=== PATIENT | male | born 1975 | race Caucasian/White ===

== ENCOUNTER 2018-02-10 04:56 | Emergency (ER) | payer MEDICAID ==
[~2018-02-10] VITALS: Ht 182.9 cm; Wt 83.8 kg
[~2018-02-10 04:56] MED LIST: LAMO25TA62 PO
[2018-02-10 05:12] VITALS: BP 127/72
[2018-02-10] MEDS ORDERED: LORA-835 PO (05:28)
[2018-02-10] MEDS ORDERED: GUAI473S11 PO (05:28)
[2018-02-10] MEDS ORDERED: AZIT250T PO (05:28)
== END 2018-02-10 05:41 | disposition home or self-care (01) ==
LOC: ER 04:56
DX: J30.9 Allergic rhinitis, unspecified (principal); J32.9 Chronic sinusitis, unspecified; F17.200 Nicotine dependence, unspecified, uncomplicated; F15.10 Other stimulant abuse, uncomplicated; F11.10 Opioid abuse, uncomplicated; F14.10 Cocaine abuse, uncomplicated; Z88.0 Allergy status to penicillin
CPT/HCPCS: 99283

== ENCOUNTER 2018-02-17 17:40 | Emergency (ER) | payer MEDICAID ==
[~2018-02-17] VITALS: Ht 180.3 cm; Wt 74.9 kg
[~2018-02-17 17:40] MED LIST changes: +AZIT250T PO; +GUAI473S11 PO; +LORA-835 PO
[2018-02-17 18:03] VITALS: BP 117/74
[2018-02-17 20:14] LABS: BASOPHILS % (AUTO) 0.3 % (0-1); EOSINOPHILS # (AUTO) 0.1 X10'3 (0-0.9); HEMATOCRIT 47.6 % (42.0-52.0); HEMOGLOBIN 16.4 g/dl (14.0-17.9); LYMPHOCYTES # (AUTO) 1.1 X10'3 (1.1-4.8); LYMPHOCYTES % (AUTO) 14.7 % (21-51); MEAN CORPUSCULAR HEMOGLOBIN 30.9 PG (27.0-31.0); MEAN CORPUSCULAR HGB CONC 34.4 % (33.0-36.5); MEAN CORPUSCULAR VOLUME 89.8 FL (78-98); MEAN PLATELET VOLUME 7.1 FL (7.4-10.4); MONOCYTES # (AUTO) 0.5 X10'3 (0-0.9); MONOCYTES % (AUTO) 6.9 % (2-12); NEUTROPHILS # (AUTO) 5.5 X10'3 (1.8-7.7); NEUTROPHILS % (AUTO) 77.1 % (42-75); PLATELET COUNT 311 X10'3 (140-440); RED CELL DISTRIBUTION WIDTH 13.2 % (11.5-14.5); WHITE BLOOD COUNT 7.2 X10'3 (4.5-11.0)
[2018-02-17] MEDS ORDERED: ondansetron 4mg rapidly disintigrating tab PO ONE (20:15)
[2018-02-17 20:25] LABS: PARTIAL THROMBOPLASTIN TIME 27 SECONDS (22-32); PROTHROMBIN TIME 10.8 SECONDS (9.0-12.0)
[2018-02-17 20:33] LABS: ALANINE AMINOTRANSFERASE 45 U/L (12-78); ALBUMIN 3.7 G/DL (3.4-5.0); ALBUMIN/GLOBULIN RATIO 0.9 (1.1-1.5); ALKALINE PHOSPHATASE 48 IU/L (46-116); ANION GAP 9 (8-16); ASPARTATE AMINO TRANSFERASE 39 U/L (10-37); BILIRUBIN,TOTAL 0.6 MG/DL (0.1-1.0); BLOOD UREA NITROGEN 17 MG/DL (7-18); BUN/CREATININE RATIO 15.7 (5.4-32.0); CALCIUM 8.7 MG/DL (8.5-10.1); CHLORIDE 101 MMOL/L (99-107); CREATININE 1.08 MG/DL (0.60-1.10); GLUCOSE 99 MG/DL (70-104); LIPASE 83 U/L (73-393); POTASSIUM 3.7 MMOL/L (3.5-5.1); SODIUM 139 MMOL/L (135-145); TOTAL CARBON DIOXIDE 28.7 MMOL/L (24-32); TOTAL PROTEIN 7.6 G/DL (6.4-8.2); eGFR 75 ML/MIN
[2018-02-17 20:51] LABS: CLARITY,URINE Clear (Clear); COLOR,URINE Yellow (Yellow); GLUCOSE, URINE Negative (Neg); KETONES,URINE Negative (Neg); LEUKOCYTE ESTERASE ,URINE Negative (Neg); NITRITES, URINE Negative (Neg); OCCULT BLOOD,URINE Trace (Neg); PH,URINE 5.5 (4.8-8.0); PROTEIN,URINE Negative (Neg)
[2018-02-17 20:53] LABS: UA COLLECTION TYPE CLN CATCH MIDSTREAM
[2018-02-17 21:04] LABS: BACTERIA,URINE NONE SEEN /HPF (Neg); MUCUS STRANDS NONE SEEN /LPF (Neg); RBC,URINE 0-2 /HPF (0-2); SQUAMOUS EPITHELIAL CELL,UR FEW /LPF (FEW); WBC,URINE NONE SEEN /HPF (0-4)
== END 2018-02-17 22:03 | disposition home or self-care (01) ==
LOC: ER 17:40
DX: R10.32 Left lower quadrant pain (principal); R19.7 Diarrhea, unspecified; R42 Dizziness and giddiness; R05 Cough; R50.9 Fever, unspecified; R53.1 Weakness; F17.200 Nicotine dependence, unspecified, uncomplicated; F15.10 Other stimulant abuse, uncomplicated; F14.10 Cocaine abuse, uncomplicated; F11.10 Opioid abuse, uncomplicated; Z88.0 Allergy status to penicillin; Z79.899 Other long term (current) drug therapy
CPT/HCPCS: 36415; 74176; 80053; 81001; 83690; 85025; 85610; 85730; 99285

== ENCOUNTER 2018-03-08 16:08 | Emergency (ER) | payer MEDICAID ==
[~2018-03-08] VITALS: Ht 182.9 cm; Wt 81.6 kg
[2018-03-08 16:10] VITALS: BP 122/88
[2018-03-08] MEDS ORDERED: LIDO20SO16 PO (16:46)
== END 2018-03-08 16:58 | disposition home or self-care (01) ==
LOC: ER 16:09
DX: J02.8 Acute pharyngitis due to other specified organisms (principal); F15.10 Other stimulant abuse, uncomplicated; F14.10 Cocaine abuse, uncomplicated; F11.10 Opioid abuse, uncomplicated; Z88.0 Allergy status to penicillin; Z79.899 Other long term (current) drug therapy
CPT/HCPCS: 87081; 87880; 99284

== ENCOUNTER 2018-12-20 02:24 | Emergency (ER) | payer MEDICAID ==
[~2018-12-20] VITALS: Ht 180.3 cm; Wt 59.9 kg
[~2018-12-20 02:24] MED LIST changes: -GUAI473S11 PO; +LIDO20SO16 PO
[2018-12-20 02:29] VITALS: BP 129/76
--- NOTE | 2018-12-20 02:36 | NUR ---
PT HAS NO C/O ANYTHING OTHER THAN BEING OUTSIDE AND USING METH AND WANTS ABX R/T STUFF IN METH. HE GOT INTO HIS ROOM, HE TOOK OFF HIS JACKET. HE IS SITTING ON THE BED AWAITING ME. HE APPEARS CLEAN. HE HAS A WINTER JACKET, BEANIE HAT ON AND JEANS/SHOES AND A SUITCASE AND A BACK PACK. HE IS CLEANING THE INSIDE OF HIS BACKPACK RIGHT NOW. HE SEEMS VERY TIDY.
== END 2018-12-20 03:16 | disposition home or self-care (01) ==
LOC: ER 02:25
DX: F15.10 Other stimulant abuse, uncomplicated (principal); E05.00 Thyrotoxicosis with diffuse goiter without thyrotoxic crisis or storm; Z59.0 Homelessness; Z88.0 Allergy status to penicillin
CPT/HCPCS: 99281

== ENCOUNTER 2019-01-13 09:58 | Emergency (ER) | payer MEDICAID ==
[~2019-01-13] VITALS: Ht 180.3 cm; Wt 75.7 kg
[2019-01-13 10:13] VITALS: BP 131/75
--- NOTE | 2019-01-13 11:33 | NUR ---
See Provider notes for physical assessment.
[2019-01-14] MEDS ORDERED: BUPR-94 PO (00:49)
[2019-01-14] MEDS ORDERED: TEST200V10 IM (00:49)
== END 2019-01-13 11:48 | disposition home or self-care (01) ==
LOC: ER 10:00
DX: M79.642 Pain in left hand (principal); M79.641 Pain in right hand; M79.672 Pain in left foot; M79.671 Pain in right foot; F15.90 Other stimulant use, unspecified, uncomplicated; Z59.0 Homelessness; Z88.1 Allergy status to other antibiotic agents; Z79.899 Other long term (current) drug therapy
CPT/HCPCS: 99284

== ENCOUNTER 2019-01-13 13:15 | Emergency (ER) | payer MEDICAID ==
[~2019-01-13] VITALS: Ht 180.3 cm; Wt 77.0 kg
--- NOTE | 2019-01-13 14:00 | NUR ---
NO BEDS AVAILABLE, PT HAS CONTRACTED FOR SAFETY AND WILL STAY IN ER FOR EVALUATION, PT IS AWARE HE IS ON 5150, PT IN HALLWAY 16, CALM AND COOPERATIVE, RESP EVEN AND UNLABORED,
--- NOTE | 2019-01-13 14:45 | NUR ---
pt remains calm and cooperative, dressed in green scrubs and has green blanket, gave pt crackers an water, nubia well, no n/v
--- NOTE | 2019-01-13 15:00 | NUR ---
pt is eating sandwich and water,
--- NOTE | 2019-01-13 15:05 | NUR ---
unable to do telepsych as pt is in hallway
[2019-01-13 15:09] LABS: URINE AMPHETAMINE SCREEN POSITIVE (Neg); URINE BARBITUATE SCREEN NEGATIVE (Neg); URINE BENZODIAZEPINES SCREEN NEGATIVE (Neg); URINE CANNABINOID SCREEN NEGATIVE (Neg); URINE COCAINE SCREEN NEGATIVE (Neg); URINE METHADONE SCREEN NEGATIVE (Neg); URINE OPIATE SCREEN NEGATIVE (Neg); URINE PHENCYCLIDINE SCREEN NEGATIVE (Neg)
[2019-01-13 15:15] LABS: BASOPHILS % (AUTO) 0.6 % (0-1); EOSINOPHILS # (AUTO) 0.2 X10'3 (0-0.9); EOSINOPHILS % (AUTO) 3.1 % (0-6); HEMOGLOBIN 14.1 g/dl (14.0-17.9); LYMPHOCYTES # (AUTO) 1.5 X10'3 (1.1-4.8); LYMPHOCYTES % (AUTO) 22.4 % (21-51); MEAN CORPUSCULAR HEMOGLOBIN 30.5 PG (27.0-31.0); MEAN CORPUSCULAR HGB CONC 34.5 g/dL (33.0-36.5); MEAN CORPUSCULAR VOLUME 88.5 FL (78-98); MEAN PLATELET VOLUME 6.3 FL (7.4-10.4); MONOCYTES # (AUTO) 0.5 X10'3 (0-0.9); MONOCYTES % (AUTO) 6.8 % (2-12); NEUTROPHILS # (AUTO) 4.5 X10'3 (1.8-7.7); NEUTROPHILS % (AUTO) 67.1 % (42-75); PLATELET COUNT 456 X10'3 (140-440); RED BLOOD COUNT 4.63 X10'6 (4.70-6.10); RED CELL DISTRIBUTION WIDTH 13.5 % (11.5-14.5); WHITE BLOOD COUNT 6.6 X10'3 (4.5-11.0)
[2019-01-13 15:26] LABS: ALANINE AMINOTRANSFERASE 29 U/L (12-78); ALBUMIN 3.4 G/DL (3.4-5.0); ALBUMIN/GLOBULIN RATIO 0.9 (1.1-1.5); ALKALINE PHOSPHATASE 100 IU/L (46-116); ANION GAP 8 (8-16); ASPARTATE AMINO TRANSFERASE 20 U/L (10-37); BILIRUBIN,TOTAL 0.4 MG/DL (0.1-1.0); BLOOD UREA NITROGEN 15 MG/DL (7-18); BUN/CREATININE RATIO 17.4 (5.4-32.0); CALCIUM 8.6 MG/DL (8.5-10.1); CHLORIDE 100 MMOL/L (99-107); CREATININE 0.86 MG/DL (0.60-1.10); ETHANOL < 0.010 GM/DL (0.0-0.010); GLUCOSE 87 MG/DL (70-104); POTASSIUM 3.3 MMOL/L (3.5-5.1); SODIUM 138 MMOL/L (135-145); TOTAL CARBON DIOXIDE 30.2 MMOL/L (24-32); TOTAL PROTEIN 7.2 G/DL (6.4-8.2); eGFR > 90 ML/MIN
--- NOTE | 2019-01-13 15:30 | NUR ---
pt becoming agitated due to another combative pt in ER, moved pt to [facility] with a bed, gave pt ear plugs and eye mask, pt was threatening to jump on staff taking care of the other pt "I don't like hearing people hurt...can i have some ear plugs?"
--- NOTE | 2019-01-13 15:45 | NUR ---
pt is calm and quietly, resting on gurney, green blanket on pt
--- NOTE | 2019-01-13 17:05 | NUR ---
pt is sleeping, resp even and unlabored
--- NOTE | 2019-01-13 18:03 | NUR ---
pt continues to rest quietly on bed,
--- NOTE | 2019-01-13 18:48 | NUR ---
pt had dinner, nubia well, no n/v,
--- NOTE | 2019-01-13 19:48 | NUR ---
FAXED PACKET TO [facility]
--- NOTE | 2019-01-13 20:15 | NUR ---
PATIENT LAYING IN BED WITH EYES CLOSED RR EVEN UNLABORED
--- NOTE | 2019-01-13 21:19 | NUR ---
GAVE PT SNACK
--- NOTE | 2019-01-14 00:25 | NUR ---
Patient brought over by [facility], he is A&O x3 and WAYNE. I asked him why he was he and he said "because I am unable to take care of myself". He is now resting comfortably on hospital bed awaiting Tele Psyc.
[2019-01-14] MEDS ORDERED: BUPR-94 PO (00:49)
[2019-01-14] MEDS ORDERED: TEST200V10 IM (00:49)
--- NOTE | 2019-01-14 01:25 | NUR ---
Tele Psyc MD called for patient info and be interviewing pt soon.
--- NOTE | 2019-01-14 01:26 | NUR ---
Tele Nasim POLK is with the patient now.
[2019-01-14] MEDS ORDERED: TESTOSTERONE CYPIONATE 200 MG/ML IM SCH (02:50)
--- NOTE | 2019-01-14 03:13 | NUR ---
Patient awake and asking where the bathroom was, I showed him where it was and her complained that it wasn't close enough because his feet were frostbitten??? Per MD he has not s/s of frostbite. He also requested Tylenol or Ibuprofen for hand/foot pain. I cld charge robert cortes who will pass request on to Dr. Manzanares.
[2019-01-14] MEDS ORDERED: ibuprofen tablet 400 MG TABLET PO ONE (03:55)
[2019-01-14 05:51] VITALS: BP 108/56
[2019-01-14] MEDS ORDERED: buPROPion SR 150mg tablet PO SCH (08:00)
== END 2019-01-14 13:22 ==
LOC: ER 13:16
DX: F31.9 Bipolar disorder, unspecified (principal); F20.9 Schizophrenia, unspecified; F17.200 Nicotine dependence, unspecified, uncomplicated; F15.90 Other stimulant use, unspecified, uncomplicated; Z59.0 Homelessness; Z88.0 Allergy status to penicillin
CPT/HCPCS: 36415; 80053; 80305; 80320; 85025; 99285

== ENCOUNTER 2019-02-12 17:12 | Emergency (ER) | payer MEDICAID ==
[~2019-02-12] VITALS: Ht 182.9 cm; Wt 81.8 kg
[~2019-02-12 17:12] MED LIST changes: -AZIT250T PO; +BUPR-94 PO; -LAMO25TA62 PO; -LIDO20SO16 PO; -LORA-835 PO; +TEST200V10 IM
[2019-02-12 18:04] VITALS: BP 161/65
--- NOTE | 2019-02-12 18:51 | NUR ---
TELE PSYCH CONSULT INITIATED.
[2019-02-12] MEDS ORDERED: NO HOME MEDS (18:53)
--- NOTE | 2019-02-12 18:54 | NUR ---
PT SENT FROM [facility] WHERE HE IS A PT. STATES "THEY WANTED ME TO COME HERE A FEW DAYS AGO", HAS BEEN FEELING SUICIDAL. LIVING ON STREETS. PT COOPERATIVE AND STATES THAT HE HASN'T BEEN TAKING HIS WELLBUTRIN, AND THAT "IT DOESN'T WORK".
[2019-02-12 19:20] LABS: URINE AMPHETAMINE SCREEN POSITIVE (Neg); URINE BARBITUATE SCREEN NEGATIVE (Neg); URINE BENZODIAZEPINES SCREEN NEGATIVE (Neg); URINE CANNABINOID SCREEN NEGATIVE (Neg); URINE COCAINE SCREEN NEGATIVE (Neg); URINE METHADONE SCREEN NEGATIVE (Neg); URINE OPIATE SCREEN NEGATIVE (Neg); URINE PHENCYCLIDINE SCREEN NEGATIVE (Neg)
[2019-02-12 19:59] LABS: BASOPHILS % (AUTO) 0.6 % (0-1); EOSINOPHILS # (AUTO) 0.3 X10'3 (0-0.9); EOSINOPHILS % (AUTO) 4.5 % (0-6); HEMATOCRIT 39.5 % (42.0-52.0); HEMOGLOBIN 13.6 g/dl (14.0-17.9); LYMPHOCYTES # (AUTO) 2.1 X10'3 (1.1-4.8); LYMPHOCYTES % (AUTO) 34.8 % (21-51); MEAN CORPUSCULAR HEMOGLOBIN 30.6 PG (27.0-31.0); MEAN CORPUSCULAR HGB CONC 34.4 g/dL (33.0-36.5); MEAN PLATELET VOLUME 6.7 FL (7.4-10.4); MONOCYTES # (AUTO) 0.4 X10'3 (0-0.9); MONOCYTES % (AUTO) 6.8 % (2-12); NEUTROPHILS # (AUTO) 3.2 X10'3 (1.8-7.7); NEUTROPHILS % (AUTO) 53.3 % (42-75); PLATELET COUNT 350 X10'3 (140-440); RED BLOOD COUNT 4.44 X10'6 (4.70-6.10); RED CELL DISTRIBUTION WIDTH 14.5 % (11.5-14.5)
[2019-02-12 20:08] LABS: ALANINE AMINOTRANSFERASE 36 U/L (12-78); ALBUMIN 3.2 G/DL (3.4-5.0); ALKALINE PHOSPHATASE 88 IU/L (46-116); ANION GAP 5 (8-16); ASPARTATE AMINO TRANSFERASE 22 U/L (10-37); BILIRUBIN,TOTAL 0.2 MG/DL (0.1-1.0); BLOOD UREA NITROGEN 17 MG/DL (7-18); BUN/CREATININE RATIO 17.3 (5.4-32.0); CALCIUM 8.7 MG/DL (8.5-10.1); CHLORIDE 106 MMOL/L (99-107); CREATININE 0.98 MG/DL (0.60-1.10); GLUCOSE 100 MG/DL (70-104); SODIUM 142 MMOL/L (135-145); TOTAL CARBON DIOXIDE 30.6 MMOL/L (24-32); TOTAL PROTEIN 6.5 G/DL (6.4-8.2); eGFR 84 ML/MIN
[2019-02-12 20:18] LABS: ETHANOL < 0.010 GM/DL (0.0-0.010)
--- NOTE | 2019-02-12 21:13 | NUR ---
PT SPEAKING WITH PYSCHIATRIST.
[2019-02-12] MEDS ORDERED: haloperidol 5mg tablet PO ONE (22:15)
--- NOTE | 2019-02-12 22:24 | NUR ---
PER PSYCH MD, PT DOES NOT MEET CRITERIA FOR HOLD. PLAN DC TO HOME. MEAL PROVIDED EARLIER, PT HAS WEATHER APPROPRIATE CLOTHING. PT NOT HAPPY ABOUT NOT BEING ABLE TO STAY THE NIGHT, SO SECURITY CALLED TO BEDSIDE TO EXCORT PT OFF UNIT.
--- NOTE | 2019-02-12 22:29 | NUR ---
During TelePsych consult pt kept falling asleep. Pt was sternum rubbed to aide in alertness.
--- NOTE | 2019-02-12 22:30 | NUR ---
Upon DC PT begins complaining about missing blank check amongst personal items. Blank check was never found during PT intake.
== END 2019-02-12 22:35 | disposition home or self-care (01) ==
LOC: ER 17:12
DX: F32.9 Major depressive disorder, single episode, unspecified (principal); F20.9 Schizophrenia, unspecified; F31.9 Bipolar disorder, unspecified; F15.10 Other stimulant abuse, uncomplicated; E86.0 Dehydration; Z56.0 Unemployment, unspecified; Z59.0 Homelessness; Z88.0 Allergy status to penicillin; Z79.899 Other long term (current) drug therapy
CPT/HCPCS: 36415; 80053; 80305; 80320; 84443; 85025; 93005; 99284

== ENCOUNTER 2019-05-31 17:39 | Emergency (ER) | payer MEDICAID ==
[~2019-05-31] VITALS: Ht 180.3 cm; Wt 79.5 kg
[~2019-05-31 17:39] MED LIST changes: -BUPR-94 PO; +NO HOME MEDS; -TEST200V10 IM
[2019-05-31 18:02] VITALS: BP 120/82
--- NOTE | 2019-05-31 18:09 | NUR ---
process inspector informed of patient. Pt has no current HI or SI. Pt feels comfortable waiting in lobby.
[2019-05-31] MEDS ORDERED: sertraline 25mg tablet PO ONE (19:35)
[2019-05-31] MEDS ORDERED: quetiapine 100mg tablet PO SCH (19:35)
[2019-05-31] MEDS: QUEtiapine 25mg tablet PO ONE ×2 (19:49→19:50)
== END 2019-05-31 19:53 | disposition home or self-care (01) ==
LOC: ER 17:40
DX: F32.9 Major depressive disorder, single episode, unspecified (principal); F23 Brief psychotic disorder; F15.90 Other stimulant use, unspecified, uncomplicated; Z59.0 Homelessness; Z56.0 Unemployment, unspecified; Z88.0 Allergy status to penicillin; Z91.14 Patient's other noncompliance with medication regimen
CPT/HCPCS: 99284

== ENCOUNTER 2020-02-15 18:05 | Emergency (ER) | payer MEDICAID ==
[~2020-02-15] VITALS: Ht 180.3 cm; Wt 79.5 kg
[2020-02-15] MEDS ORDERED: TETanus/Pertussis (Acell)/Diphther VAC/PF (Tdap-Adult) 0.5ml syringe IMVAC ONE (18:20)
[2020-02-15] MEDS ORDERED: LIDOcaine 1% W/epiNEPHrine 1:200,000 10ml vial IJ ONE (18:20)
--- NOTE | 2020-02-15 18:48 | NUR ---
Patient to CT
[2020-02-15] MEDS ORDERED: CLIN150C2 PO (20:11)
[2020-02-15 20:21] VITALS: BP 130/59
== END 2020-02-15 20:25 ==
LOC: ER 18:06
DX: S02.31XA Fracture of orbital floor, right side, initial encounter for closed fracture (principal); S01.111A Laceration without foreign body of right eyelid and periocular area, initial encounter; F31.9 Bipolar disorder, unspecified; F20.9 Schizophrenia, unspecified; F15.90 Other stimulant use, unspecified, uncomplicated; Z59.0 Homelessness; Z88.0 Allergy status to penicillin; Z79.899 Other long term (current) drug therapy; Z56.0 Unemployment, unspecified; Y08.89XA Assault by other specified means, initial encounter; Y93.89 Activity, other specified; Y92.89 Other specified places as the place of occurrence of the external cause; Y99.8 Other external cause status
CPT/HCPCS: 12013; 70450; 70486; 90715; 99285